=== PATIENT | female | born 1985 | race African-American/Black ===

== ENCOUNTER 2016-09-09 17:48 | Emergency (ER) | payer OTHER ==
[~2016-09-09] VITALS: Ht 170.2 cm; Wt 97.5 kg
[~2016-09-09 17:48] MED LIST: NORCO 5-325 TA1 EACH PO
[2016-09-09 18:10] LABS: URINE BILIRUBIN NEGATIVE (Negative); URINE BLOOD 3+ (Negative); URINE GLUCOSE-RANDOM* NEGATIVE (Negative); URINE KETONES TRACE (Negative); URINE NITRITE NEGATIVE (Negative); URINE PROTEIN (DIPSTICK) 3+ (Negative)
[2016-09-09 18:11] LABS: URINE COLOR REDDISH
[2016-09-09 18:25] LABS: BACTERIA 1-9 Few /HPF (None Seen); CASTS None Seen /LPF (None Seen); CRYSTALS None Seen /LPF (None Seen); SQUAMOUS 0-3 Few /LPF (0-3); URINE RBC >20 Many /HPF (0-2); URINE WBC >25 Many /HPF (0-5)
[2016-09-09] MEDS ORDERED: MACROBID 100 M100 M1 PO (18:27)
== END 2016-09-09 19:18 | disposition home or self-care (01) ==
LOC: ER 17:48
PROVIDERS: Nurse Practitioner
DX: N39.0 Urinary tract infection, site not specified (principal)

== ENCOUNTER 2016-11-11 10:27 | Emergency (ER) | payer OTHER ==
[~2016-11-11] VITALS: Ht 160 cm; Wt 88.5 kg
[~2016-11-11 10:27] MED LIST changes: +MACROBID 100 M100 M1 PO
[2016-11-11] MEDS ORDERED: NORCO 5-325 TA1 EACH PO (12:39)
[2016-11-11 13:10] VITALS: BP 130/85
== END 2016-11-11 12:40 | disposition home or self-care (01) ==
LOC: ER 10:27
DX: S16.1XXA Strain of muscle, fascia and tendon at neck level, initial encounter (principal); S46.911A Strain of unspecified muscle, fascia and tendon at shoulder and upper arm level, right arm, initial encounter; S80.211A Abrasion, right knee, initial encounter; R07.89 Other chest pain; V49.40XA Driver injured in collision with unspecified motor vehicles in traffic accident, initial encounter; Y93.89 Activity, other specified; Y92.89 Other specified places as the place of occurrence of the external cause; Y99.8 Other external cause status

== ENCOUNTER 2018-08-05 19:05 | Emergency (ER) | payer OTHER ==
[~2018-08-05] VITALS: Ht 157.5 cm; Wt 81.7 kg
[~2018-08-05 19:05] MED LIST changes: +AMOXICILLI400 MG/5 M PO; +BACTROBAN CREAM30 G1 TOP; +CEPACOL SORE T1 EAC8 PO; +HYDROCODONE-AP1 EAC6 PO; +IRON325 PO; +PREDNISONE 20 M20 MG PO; +PRELONE15 MG/5 ML PO; +PRENATAL PO; +STOOL SOFTENER100 MG PO; +VENTOLIN HFA 1818 GM INH
[2018-08-05] MEDS ORDERED: IBUPROFEN 600600 M1 PO (21:19)
[2018-08-05 21:57] VITALS: BP 124/88
== END 2018-08-05 21:58 | disposition home or self-care (01) ==
LOC: ER 19:05
DX: S63.602A Unspecified sprain of left thumb, initial encounter (principal); S83.92XA Sprain of unspecified site of left knee, initial encounter; W09.8XXA Fall on or from other playground equipment, initial encounter; Y93.44 Activity, trampolining; Y92.89 Other specified places as the place of occurrence of the external cause; Y99.8 Other external cause status

== ENCOUNTER 2018-10-18 01:43 | Emergency (ER) | payer OTHER ==
[~2018-10-18] VITALS: Ht 160 cm; Wt 90.7 kg
[~2018-10-18 01:43] MED LIST changes: +IBUPROFEN 600600 M1 PO
[2018-10-18 01:49] VITALS: BP 125/79
[2018-10-18] MEDS ORDERED: NAPROSYN500 MG PO (02:16)
[2018-10-18] MEDS ORDERED: CEPACOL SORE T1 EAC7 PO (02:16)
== END 2018-10-18 02:19 | disposition home or self-care (01) ==
LOC: ER 01:43
DX: J02.8 Acute pharyngitis due to other specified organisms (principal); B97.89 Other viral agents as the cause of diseases classified elsewhere

== ENCOUNTER 2019-02-22 20:23 | Emergency (ER) | payer OTHER ==
[~2019-02-22] VITALS: Ht 160 cm; Wt 104.3 kg
[~2019-02-22 20:23] MED LIST changes: +CEPACOL SORE T1 EAC7 PO; +NAPROSYN500 MG PO
[2019-02-22] MEDS ORDERED: DOXYCYCLINE 10100 MG PO (21:39)
[2019-02-22 21:47] VITALS: BP 159/99
== END 2019-02-22 21:46 | disposition home or self-care (01) ==
LOC: ER 20:23
DX: L73.9 Follicular disorder, unspecified (principal); Z20.2 Contact with and (suspected) exposure to infections with a predominantly sexual mode of transmission

== ENCOUNTER → 2019-11-16 | Emergency (ER) | payer OTHER ==
[~2019-11-16] VITALS: Ht 160 cm; Wt 90.7 kg
[~2019-11-16] MED LIST changes: +DOXYCYCLINE 10100 MG PO
[2019-11-16 12:12] VITALS: BP 132/75
== END ==
LOC: ER 09:48
DX: O99.712 Diseases of the skin and subcutaneous tissue complicating pregnancy, second trimester (principal); S70.361A Insect bite (nonvenomous), right thigh, initial encounter; Z79.899 Other long term (current) drug therapy; Z79.2 Long term (current) use of antibiotics; Z3A.00 Weeks of gestation of pregnancy not specified; W57.XXXA Bitten or stung by nonvenomous insect and other nonvenomous arthropods, initial encounter; Y93.89 Activity, other specified; Y92.89 Other specified places as the place of occurrence of the external cause; Y99.8 Other external cause status

== ENCOUNTER 2019-11-21 15:24 | Emergency (ER) | payer OTHER ==
[~2019-11-21] VITALS: Ht 160 cm; Wt 90.7 kg
[2019-11-21 15:25] VITALS: BP 126/69
[2019-11-21] MEDS ORDERED: ENBRACE HR SOF1 EACH PO (15:50)
== END 2019-11-21 17:54 | disposition left against medical advice (07) ==
LOC: ER 15:24
DX: R21 Rash and other nonspecific skin eruption (principal); Z53.21 Procedure and treatment not carried out due to patient leaving prior to being seen by health care provider

== ENCOUNTER 2021-02-20 15:48 | Emergency (ER) | payer OTHER ==
[~2021-02-20] VITALS: Ht 157.5 cm; Wt 99.8 kg
[~2021-02-20 15:48] MED LIST changes: +ENBRACE HR SOF1 EACH PO
[2021-02-20 16:07] LABS: URINE BILIRUBIN NEGATIVE (Negative); URINE BLOOD 2+ (Negative); URINE CLARITY SL CLOUDY; URINE COLOR YELLOW; URINE GLUCOSE-RANDOM* NEGATIVE (Negative); URINE KETONES NEGATIVE (Negative); URINE NITRITE-REFLEX NEGATIVE (Negative); URINE PROTEIN (DIPSTICK) TRACE (Negative); URINE SPECIFIC GRAVITY 1.025 (1.005-1.035); URINE UROBILINOGEN 0.2 E.U./dl (0.2-1.0)
[2021-02-20 16:13] LABS: URINE LEUKOCYTES-REFLEX 2+ (Negative)
[2021-02-20 16:16] LABS: CASTS None Seen /LPF (None Seen); SQUAMOUS 4-10 Moderate /LPF (0-3)
[2021-02-20 16:18] LABS: CRYSTALS None Seen /LPF (None Seen); URINE RBC 3-10 Few /HPF (NONE SEEN)
[2021-02-20 17:12] LABS: BASOPHILS 0.8 % (0.0-2.0); EOSINOPHILS 0.9 % (0.0-3.0); HEMATOCRIT 41.6 % (37.0-47.0); HEMOGLOBIN 13.6 gm/dL (12.0-15.0); LYMPHOCYTES 13.6 % (24.0-44.0); MCH 26.8 pg (26.0-34.0); MCHC 32.6 g/dL (28.0-37.0); MCV 82.2 fL (80.0-100.0); MONOCYTES 4.4 % (1.0-8.0); PLATELET COUNT 211 thou/uL (150-400); POLYS 80.3 % (36.0-66.0); RBC 5.07 mil/uL (4.20-5.00); WBC 8.7 thou/uL (4.0-11.0)
[2021-02-20 17:29] LABS: CALCIUM 9.1 mg/dL (8.5-10.1); CREATININE 0.7 mg/dL (0.6-1.0); POTASSIUM 3.9 mmol/L (3.5-5.1)
[2021-02-20 17:37] LABS: ALBUMIN 3.7 g/dL (3.4-5.0); TOTAL BILIRUBIN 0.4 mg/dL (0.2-1.0); TOTAL PROTEIN 8.3 g/dL (6.4-8.2)
[2021-02-20] MEDS ORDERED: CYCLOBENZAPRINE5 MG PO (17:48)
[2021-02-20] MEDS ORDERED: PHENAZOPYRIDIN200 M2 PO (17:48)
[2021-02-20] MEDS ORDERED: CEPHALEXIN500 MG PO (17:48)
[2021-02-20 17:50] VITALS: BP 117/96
== END 2021-02-20 17:50 | disposition home or self-care (01) ==
LOC: ER 15:48
PROVIDERS: Physician Assistant
DX: N39.0 Urinary tract infection, site not specified (principal); M54.50 Low back pain, unspecified; E66.9 Obesity, unspecified; Z68.41 Body mass index [BMI] 40.0-44.9, adult; Z79.899 Other long term (current) drug therapy